=== PATIENT | female | born 1960 | race Caucasian/White ===

== ENCOUNTER 2017-08-29 20:24 | Emergency (ER) | payer SELFPAY ==
[~2017-08-29] VITALS: Ht 165.1 cm; Wt 96.7 kg
[2017-08-29 20:33] VITALS: TEMP 97.6
[2017-08-29 21:06] LABS: COLLECTION METHOD CLEAN CATCH
[2017-08-29 21:20] LABS: MUCOUS Present /lpf; PH 5 (5-8); URINE APPEARANCE Hazy; URINE BACTERIA Rare /hpf; URINE BILIRUBIN Negative (NEGATIVE); URINE BLOOD 1+ (NEGATIVE); URINE COLOR Yellow; URINE GLUCOSE Negative (NEGATIVE); URINE KETONE Negative (NEGATIVE); URINE LEUKOCYTE ESTERASE Negative (NEGATIVE); URINE PROTEIN(semi-quant) 2+ (NEGATIVE); URINE UROBILINOGEN Negative (NEGATIVE); URINE WBC 0-2 /hpf
[2017-08-29 22:28] LABS: BASO % 0.4 % (0.0-2.0); EOS # 0.1 (0.0-0.7); EOS % 1.1 % (0-4.0); GRAN # 7.8 (1.4-6.5); GRAN % 82.3 % (42.2-75.2); HEMATOCRIT 45.2 % (37.0-47.0); HEMOGLOBIN 14.5 g/dl (12.5-16.0); LYMPH # 1.1 (1.2-3.4); LYMPH % 11.7 % (20.0-51.0); MEAN CELL VOLUME 90 fl (80.0-100.0); MEAN CORPUSCULAR HEMOGLOBIN 29 pg (27.0-31.0); MEAN CORPUSCULAR HGB CONC 32 g/dl (33.0-37.0); MEAN PLATELET VOLUME 9.9 fl (7.4-10.4); MONO # 0.4 (0.1-0.6); MONO % 4.3 % (1.7-9.3); PLATELET COUNT 316 K/mm3 (130-400); WHITE BLOOD COUNT 9.5 K/mm3 (4.8-10.8)
[2017-08-29 22:38] LABS: ADJUSTED CALCIUM 9.1 mg/dL (8.4-10.2); ALANINE AMINOTRANSFERASE 44 U/L (9-52); ALBUMIN 4.5 gm/dL (3.5-5.0); ALKALINE PHOSPHATASE 91 U/L (50-136); ANION GAP 7 mmol/L (7-16); BILIRUBIN,TOTAL 0.7 mg/dL (0.0-1.0); BLOOD UREA NITROGEN 13 mg/dL (7-17); C-REACTIVE PROTEIN < 0.5 mg/dL (0.0-0.9); CALCIUM 9.5 mg/dL (8.4-10.2); CARBON DIOXIDE 33 mmol/L (22-30); CHLORIDE 98 mmol/L (98-107); CREATININE, serum 0.66 mg/dL (0.52-1.25); GLUCOSE 116 mg/dL (74-106); SODIUM 138 mmol/L (137-145); TOTAL PROTEIN 8.6 gm/dL (6.4-8.2)
[2017-08-29] MEDS ORDERED: MACROBID 1100 MG/CAP PO (22:42)
[2017-08-29 23:16] VITALS: BP 161/94; PULSE 64
== END 2017-08-29 23:15 | disposition home or self-care (01) ==
LOC: COL.ER 20:24
PROVIDERS: Emergency Medicine; Family Medicine
DX: N30.00 Acute cystitis without hematuria (principal)
CPT/HCPCS: J7030

== ENCOUNTER → 2017-10-05 | Outpatient (CLI) | payer BC ==
[~2017-10-05] MED LIST: MACROBID 1100 MG/CAP PO
== END ==
LOC: COL.RAD 07:05
DX: K66.8 Other specified disorders of peritoneum (principal); R19.09 Other intra-abdominal and pelvic swelling, mass and lump
CPT/HCPCS: Q9967

== ENCOUNTER 2017-11-08 09:57 | Day surgery (SDC) | payer BC ==
[~2017-11-08] VITALS: Ht 162.6 cm; Wt 89.1 kg
[2017-11-08 10:13] VITALS: BP 144/76; PULSE 82; TEMP 97
[2017-11-08] MEDS ORDERED: TYLENOL 500MG500 MG PO (10:16)
[2017-11-08 12:42] VITALS: BP 135/60; PULSE 79
[2017-11-08 12:45] VITALS: BP 97/52; PULSE 79
[2017-11-08 13:00] VITALS: BP 119/72; PULSE 71
== END 2017-11-08 13:25 | disposition home or self-care (01) ==
LOC: SDCO 09:57
DX: K57.30 Diverticulosis of large intestine without perforation or abscess without bleeding (principal); K64.0 First degree hemorrhoids; K64.4 Residual hemorrhoidal skin tags; R19.09 Other intra-abdominal and pelvic swelling, mass and lump
CPT/HCPCS: J2250; J3010; J7030